=== PATIENT | female | born 1995 | race Caucasian/White ===

== ENCOUNTER 2017-03-13 15:40 | Emergency (ER) | payer SELFPAY ==
--- NOTE | ~2017-03-13 | ER ---
PATIENT'S NAME: [facility]LLI [facility] AGE: 21 Y [address] ROOM: [place] [id number] LOCATION: ED ADMIT DATE: 03/13/2017 ER/Outpatient Report DISCHARGE DATE: 03/13/2017 FAMILY PHYSICIAN: Federico Vallejo MD ATTENDING PHYSICIAN: Malissa Lane Time of Arrival: 1550. Time of Evaluation: 1553. CHIEF COMPLAINT: Right lower quadrant abdominal pain. HISTORY OF PRESENT ILLNESS: The patient states that she has been having problems with vomiting since approximately 10 o'clock this morning. It was a sudden onset. Had pain in the right lower quadrant at that time. States that she has been vomiting at least 10 to 15 times. Has had diarrhea stools. Denies any blood in the stool or vomitus. Has not had a urinary frequency or pain with urination. Has had chills off and on. She has had problems like this in the past and mom has made arrangements for her to see a [employer] specialist in [place] to discuss possible endometriosis. ALLERGIES: SHE HAS NO KNOWN ALLERGIES. CURRENT MEDICATIONS: Oral control. PAST MEDICAL HISTORY: Benign. PAST SURGERIES: Negative. Did have a miscarriage in May of 2016. It was spontaneous and she was able to pass all the contents without having to have a D and C. SOCIAL HISTORY: Denies use of tobacco, drugs, or alcohol. REVIEW OF SYSTEMS: All negative other than those mentioned in the HPI. PHYSICAL EXAMINATION: VITAL SIGNS: She weighed 55.3 kg. Blood pressure is 150/91, pulse of 95, respirations 20, temperature of 98 tympanic, O2 saturations 100% on room air. GENERAL: She is awake, alert, and oriented x4. PATIENT'S NAME: [facility]I [facility] AGE: 21 Y [address] ROOM: [place] [id number] LOCATION: ED ADMIT DATE: 03/13/2017 ER/Outpatient Report DISCHARGE DATE: 03/13/2017 FAMILY PHYSICIAN: Federico Vallejo MD ATTENDING PHYSICIAN: Malissa Lane SKIN: [place], warm, and dry. RESPIRATIONS: Even and nonlabored. Lung sounds are clear throughout. HEART: Regular rate and rhythm. ABDOMEN: Soft, nondistended. Bowel sounds are present. She is tender to palpate in the right lower quadrant area. No rebound tenderness noted. EMERGENCY ROOM COURSE: Saline lock was initiated. Normal saline IV was started at a wide-open rate. She was given Zofran 4 mg IV. LABORATORY DATA: Lab work was drawn. CBC shows a white count of 12.5. Chem panel is within normal limits. Serum was negative. Abdominal CT scan was completed. Radiologist reports normal appendix. She does have some mild thickening of the cecum possibly colitis, but no other abnormalities are seen on the CT scan. The patient was given fentanyl 50 mcg IV. Monitored. With fluids and rest, she was feeling much better. Pain was gone. Nausea was improved. She did not vomit while she was here in the ER. IMPRESSION: Right lower quadrant abdominal pain. PLAN: Home, rest. Fluids. Tylenol or ibuprofen as needed for discomfort. Encouraged to keep the scheduled appointment in [place]. Did write a prescription for some Zofran. If symptoms persist or worsen, she should be seen in the next 2 to 3 days by her primary provider or return to the ER. Her and her mother verbalized understanding. ANDRE COFFEY APRN FOR [employer] [facility]/richi /[id number] d: 03/14/17 0326 t: 03/16/17 1836, OUTPATIENT REPORT
[2017-03-13 16:28] LABS: BASOPHIL % 0.2 %; HEMATOCRIT 37.7 % (33.0-46.0); HEMOGLOBIN 12.7 g/dL (11.0-15.0); IMMATURE GRANULOCYTE # 0.1 K/uL (0.0-0.3); IMMATURE GRANULOCYTE % 0.5 %; LYMPHOCYTE # 1.2 K/uL (0.8-4.0); LYMPHOCYTE % 9.3 %; MCH 27.4 pg (27.0-34.0); MCHC 33.7 gm/dL (32.0-36.5); MCV 81.4 fl (83.0-98.0); MONOCYTE # 0.3 K/uL (0.0-1.0); MONOCYTE % 2.6 %; MPV 10.4 fl (9.4-12.4); NEUTROPHIL # (ANC) 10.9 K/uL (1.8-7.8); NEUTROPHIL % 87.4 %; NRBC % 0 /100WBC (0-0.00); PLATELET COUNT 304 K/uL (150-450); RBC 4.63 M/uL (3.50-5.00); RDW-CV 13.2 % (11.9-14.6); WBC 12.5 K/uL (4.0-11.0)
[2017-03-13 16:45] LABS: ALBUMIN 3.9 gm/dL (3.5-5.0); ALK PHOS 80 IU/L (33-138); ALT 29 IU/L (12-78); ANION GAP 12.6 (10.0-19.0); AST 25 IU/L (10-40); BLOOD UREA NITROGEN 23 mg/dL (6-24); CALCIUM 8.8 mg/dL (8.5-10.5); CHLORIDE 108 mMol/L (96-110); CO2 24 mMol/L (22-32); CREATININE 0.7 mg/dL (0.5-1.1); ESTIMATED GFR (MDRD EQUATION) > 60; POTASSIUM 3.6 mMol/L (3.7-5.1); SODIUM 141 mMol/L (135-145); TOTAL BILIRUBIN 0.4 mg/dL (0.0-1.5); TOTAL PROTEIN 7.4 g/dL (6.0-8.4)
== END 2017-03-13 18:21 | disposition disaster alternative care site (69) ==
LOC: GMED 15:40
PROVIDERS: Nurse Practitioner Family
DX: R10.31 Right lower quadrant pain (principal); R11.10 Vomiting, unspecified
CPT/HCPCS: J2405; J3010; J7030

== ENCOUNTER → 2017-04-01 | Outpatient (CLI) | payer SELFPAY | LOC: GRAD 09:00 | DX: R10.2 Pelvic and perineal pain (principal); N83.11 Corpus luteum cyst of right ovary ==